=== PATIENT | female | born 1975 | race African-American/Black ===

== ENCOUNTER 2021-11-07 17:19 | Emergency (ER) | payer OTHER ==
[~2021-11-07] VITALS: Ht 170.2 cm; Wt 116.0 kg
--- NOTE | 2021-11-07 17:45 | PHYS DOC ---
General Adult EDM: Chief Complaint: headache HPI: HPI: 45-year-old female presents with migraine headache. Patient has a history of migraines. She states this 1 feels like her previous. It has been going on for 5 days. She does not usually have them last this long. She has tried Imitrex each day without relief. The patient typically gets 3 or 4 migraines a month but the Imitrex typically works. The patient denies any falls or trauma. She has had no significant changes to diet. She denies fever or chills. (DANY CORRIGAN DO) Review of Systems: Review of Systems: Constitutional: Denies fever or chills Eyes: Denies change in visual acuity HENT: Denies nasal congestion or sore throat Respiratory: Denies cough or shortness of breath Cardiovascular: Denies chest pain or edema GI: Denies abdominal pain, nausea, vomiting, bloody stools or diarrhea : Denies dysuria Musculoskeletal: Denies back pain or joint pain Integument: Denies rash Neurologic: headache. Denies focal weakness or sensory changes Endocrine: Denies polyuria or polydipsia Lymphatic: Denies swollen glands Psychiatric: Denies depression or anxiety (DANY CORRIGAN DO) Current Medications: Current Meds: Current Medications Medications (Trade) Dose Ordered Sig/Giancarlo Start Time Stop Time Status Last Admin Dose Admin Dexamethasone Sodium Phosphate (Decadron) 10 mg 1X ONCE 11/07/21 17:45 11/07/21 17:46 UNV Diphenhydramine HCl (Benadryl) 25 mg 1X ONCE 11/07/21 17:45 11/07/21 17:46 UNV Metoclopramide HCl (Reglan Vial) 10 mg 1X ONCE 11/07/21 17:45 11/07/21 17:46 UNV Sodium Chloride 1,000 ml @ 1,000 mls/hr 1X ONCE 11/07/21 17:45 11/07/21 18:44 UNV (DANY CORRIGAN DO) Physical Exam: PE: Constitutional: Well developed, well nourished, morbidly obese, no acute distress, non-toxic appearance. [] HENT: Normocephalic, atraumatic, bilateral external ears normal, oropharynx moist, no oral exudates, nose normal. [] Eyes: PERRLA, EOMI, conjunctiva normal, no discharge. [] Neck: Normal range of motion, no tenderness, supple, no stridor. [] Cardiovascular: Heart rate regular rhythm, no murmur [] Lungs & Thorax: Bilateral breath sounds clear to auscultation [] Abdomen: Bowel sounds normal, soft, no tenderness, no masses, no pulsatile masses. [] Skin: Warm, dry, no erythema, no rash. [] Back: No tenderness, no CVA tenderness. [] Extremities: No tenderness, no cyanosis, no clubbing, ROM intact, no edema. [] Neurologic: Alert and oriented X 3, normal motor function, normal sensory function, no focal deficits noted. [] Psychologic: Affect normal, judgement normal, mood normal. [] (DANY CORRIGAN DO) EKG: EKG: [] (DANY CORRIGAN DO) Radiology/Procedures: Radiology/Procedures: [] (DANY CORRIGAN DO) Heart Score: C/O Chest Pain: N/A Risk Factors: Risk Factors: DM, Current or recent (<one month) smoker, HTN, HLP, family history of CAD, obesity. Risk Scores: Score 0 - 3: 2.5% MACE over next 6 weeks - Discharge Home Score 4 - 6: 20.3% MACE over next 6 weeks - Admit for Clinical Observation Score 7 - 10: 72.7% MACE over next 6 weeks - Early Invasive Strategies (DANY CORRIGAN DO) Course & Med Decision Making: Course & Med Decision Making Pertinent Labs and Imaging studies reviewed. (See chart for details) For the patient's headache after 1 L normal saline, 30 mg of Toradol, 10 mg Reglan, 25 mg of Benadryl, and 10 mg of dexamethasone. The patient's labs are pending. I am signing patient out to the night baker at 1800. [] (DANY CORRIGAN DO) Course & Med Decision Making Patient care handed off to me at checkout pending reassessment for migraine cocktail. On reassessment, patient stated she was feeling much better and was ready to be discharged home. Discussed symptom management at home. Discussed hydration and diet. Given work note at patient's request. Advised to follow-up in the morning with primary care physician. Gave return precautions to the ED. Patient grateful, verbalized understanding and agreed with plan of discharge. (BURTON MALIK MD) Debbie Disclaimer: Debbie Disclaimer: This electronic medical record was generated, in whole or in part, using a voice recognition dictation system. (DANY CORRIGAN DO) Departure Departure: Impression: Primary Impression: Migraine headache Disposition: HOME / SELF CARE / HOMELESS Condition: STABLE Referrals: ZENY JAMES MD (PCP) Patient Instructions: Migraine Headache Additional Instructions: Thank you for coming into the emergency department tonight and allowing us to take care of you. Please read the attached information carefully to go over things we discussed. Please continue Tylenol, ibuprofen and Benadryl at home as we discussed. 1000 mg of Tylenol every 8 hours, 800 mg of ibuprofen every 8 hours and 50 mg of Benadryl every 6 hours. Please use your nausea medicine as prescribed as well over the next 24 hours so he can stay hydrated. You are given a work note for tomorrow to stay home and rest. Please call your primary care physician in the morning to update on your ED visit and set up a follow-up as soon as you can. Please come back with new or concerning symptoms as discussed. DANY CORRIGAN DO November 07, 2021 17:45 BURTON MALIK MD November 07, 2021 19:48
[2021-11-07] MEDS: METOCLOPRAMIDE HCL 10 MG/2 ML VIAL. IVP ONE (18:00)
[2021-11-07] MEDS: IV NORMAL SALINE 1,000ML 1,000 ML IV ONE (18:00)
[2021-11-07] MEDS: diphenhydrAMINE 50 MG/ML VIAL IVP ONE (18:02)
[2021-11-07] MEDS: DEXAMETHASONE SOD PHOS 10 MG/ML VIAL. IVP ONE (18:05)
[2021-11-07] MEDS: KETOROLAC 30 MG/ML VIAL. IVP ONE (18:12)
[2021-11-07 18:30] LABS: BASO # 0.1 x10^3/uL (0.0-0.2); BASO % 1 % (0-3); EOS # 0.2 x10^3/uL (0.0-0.7); EOS % 2 % (0-3); HEMATOCRIT 31.5 % (36.0-47.0); LYMPH % 39 % (24-48); MEAN CORPUSCULAR HEMOGLOBIN 24 pg (25-35); MEAN CORPUSCULAR HGB CONC 32 g/dL (31-37); MEAN CORPUSCULAR VOLUME 77 fL (79-100); MONO # 0.5 x10^3/uL (0.0-1.1); MONO % 5 % (0-9); NEUT # 5.3 x10^3uL (1.8-7.7); NEUT % 53 % (31-73); PLATELET COUNT 490 x10^3/uL (140-400); RED BLOOD COUNT 4.12 x10^6/uL (3.50-5.40); RED CELL DISTRIBUTION WIDTH 18.3 % (11.5-14.5); WHITE BLOOD COUNT 10.1 x10^3/uL (4.0-11.0)
[2021-11-07 18:36] LABS: CALCIUM 9.3 mg/dL (8.5-10.1); CREATININE 0.8 mg/dL (0.6-1.0); POTASSIUM 3.7 mmol/L (3.5-5.1)
[2021-11-07 18:42] LABS: ALBUMIN 3.7 g/dL (3.4-5.0); ALBUMIN/GLOBULIN RATIO 0.9 (1.0-1.7); TOTAL BILIRUBIN 0.2 mg/dL (0.2-1.0); TOTAL PROTEIN 7.6 g/dL (6.4-8.2)
[2021-11-07 20:00] VITALS: BP 155/101
[2021-11-07] MEDS: ONDANSETRON 4MG ODT 4TABLET STARTPACK. PO ONE (20:00)
[2021-11-07 20:30] LABS: CLARITY,URINE CLEAR; COLOR,URINE YELLOW; GLUCOSE,URINE NEG (NEG); NITRITE,URINE NEG (NEG); UROBILINOGEN,URINE 0.2 mg/dL (0.2 mg/dL); WBC,URINE OCC /HPF (0-4)
[2021-11-07 20:31] LABS: BACTERIA,URINE FEW /HPF (0-FEW); SQUAMOUS EPITHELIAL CELL,UR FEW /LPF
== END 2021-11-07 20:00 | disposition home or self-care (01) ==
LOC: ER 17:19
DX: G43.909 Migraine, unspecified, not intractable, without status migrainosus (principal)
CPT/HCPCS: 36415; 80053; 81001; 85025; 96361; 96374; 96375; 99283; J1100; J1200; J1885; J2765; J7030; Q0162